=== PATIENT | male | born 1940 | race Caucasian/White ===

== ENCOUNTER 2017-01-27 08:12 | Inpatient (IN) | payer MEDICARE, BC ==
[~2017-01-27] VITALS: Ht 172.7 cm; Wt 126.4 kg
[~2017-01-27 08:12] MED LIST: ARIP15TA2 PO; ASPI-650 PO; ATOR80TA75 PO; BACITRACIN 50,000 UNIT ONE; BUPIVACAINE/PF-EPI 0.5% 1:200K ONE; CHOL10003 PO; DOCU100C PO; DULO30CA2 PO; FENO160T PO; FLUO40CA2 PO; INSU100V5 SQ-INSULIN; LISI-167 PO; OXYC1TAB7 PO; THROMBIN 5,000 UNIT VIAL TP ONE
[2017-01-27] MEDS ORDERED: LACTATED RINGERS 1,000 ML IV SCH ×2 (09:05→09:57)
[2017-01-27] MEDS ORDERED: FENTANYL PF 100 MCG/2ML ONE ×3 (09:47→15:17)
[2017-01-27 09:58] VITALS: BP 135/67
[2017-01-27] MEDS: FENTANYL PF 100 MCG/2ML IVPush PRN ×2 (10:01→10:41)
[2017-01-27] MEDS ORDERED: FENTANYL PF 250 MCG/5ML ONE (10:21)
[2017-01-27] MEDS ORDERED: INSU500I SQ (10:27)
[2017-01-27] MEDS ORDERED: OXYC-223 PO (10:27)
[2017-01-27] MEDS ORDERED: NEOSTIGMINE 1 MG/ML, 10ML ONE (11:48)
[2017-01-27] MEDS ORDERED: GLYCOPYRROLATE 0.2MG/1ML ONE (11:48)
[2017-01-27] MEDS ORDERED: PROPOFOL 10 MG/ML, 20ML ONE (11:48)
[2017-01-27] MEDS ORDERED: ROCURONIUM 10 MG/ML ONE (11:48)
[2017-01-27] MEDS ORDERED: DEXAMETHASONE 4 MG/ML, 1ML ONE (11:48)
[2017-01-27] MEDS ORDERED: CEFAZOLIN 1,000 MG ONE (11:48)
[2017-01-27] MEDS ORDERED: ACETAMINOPHEN 325 MG TABLET PO PRN (12:00)
[2017-01-27] MEDS ORDERED: hydrALAzine 20 MG/ML, 1ML IV PRN (12:00)
[2017-01-27] MEDS ORDERED: PROMETHAZINE 25 MG/ML, 1ML IV PRN (12:00)
[2017-01-27] MEDS ORDERED: OXYcodone 5 MG/5 ML ORAL.SOL UDC PO PRN (12:00)
[2017-01-27] MEDS ORDERED: MEPERIDINE/PF 25MG/0.5ML IVPush PRN (12:00)
[2017-01-27] MEDS ORDERED: LABETALOL 5MG/ML, 20ML IV PRN (12:00)
[2017-01-27] MEDS ORDERED: ONDANSETRON 2MG/ML, 2ML IVPush PRN (12:00)
[2017-01-27] MEDS ORDERED: HYDROmorphone 2 MG/ML, 1ML ONE (15:17)
[2017-01-27] MEDS ORDERED: OXYcodone 5 MG/5 ML ORAL.SOL UDC ONE (15:18)
[2017-01-27] MEDS: FENTANYL PF 100 MCG/2ML IV PRN ×2 (15:25→15:31)
[2017-01-27] MEDS: HYDROmorphone 1 MG/ML, 1ML IV PRN ×2 (15:39→16:37)
[2017-01-27] MEDS ORDERED: LABETALOL 5MG/ML, 20ML ONE (15:41)
[2017-01-27 16:53] LABS: IS PT STATUS REG ER OR PRE ER? NO
[2017-01-27 17:50] VITALS: BP 136/78
[2017-01-27] MEDS ORDERED: PROMETHAZINE 25 MG/ML, 1ML IM PRN (18:30)
[2017-01-27] MEDS ORDERED: ONDANSETRON 2MG/ML, 2ML IV PRN (18:30)
[2017-01-27] MEDS ORDERED: HYDROmorphone 2MG TABLET PO PRN (18:30)
[2017-01-27] MEDS ORDERED: DIPHENHYDRAMINE 50 MG/ML, 1ML IVPush PRN (18:30)
[2017-01-27] MEDS ORDERED: DIPHENHYDRAMINE 50 MG/ML, 1ML IM PRN (18:30)
[2017-01-27] MEDS ORDERED: BISACODYL 10 MG SUPP PR PRN (18:30)
[2017-01-27] MEDS ORDERED: METHOCARBAMOL 750 MG TABLET PO PRN (18:30)
[2017-01-27] MEDS ORDERED: MAGNESIUM HYDROXIDE 8%, 30ML UDC PO PRN (18:30)
[2017-01-27] MEDS ORDERED: HYDROmorphone 2 MG/ML, 1ML IM PRN (18:30)
[2017-01-27] MEDS ORDERED: DIPHENHYDRAMINE 50 MG CAPSULE PO PRN (18:30)
[2017-01-27 18:53] VITALS: BP 133/76
[2017-01-27 20:00] VITALS: BP 136/67
[2017-01-27] MEDS: NS + 20MEQ KCL 1,000 ML IV SCH (21:39)
[2017-01-27] MEDS: DULOXETINE 30 MG CAPSULE.DR PO SCH (21:40)
[2017-01-27] MEDS: ATORVASTATIN 80 MG TABLET PO SCH (21:40)
[2017-01-27] MEDS: DOCUSATE 100 MG CAPSULE PO SCH (21:40)
[2017-01-27] MEDS: CHOLECALCIFEROL 1,000 UNIT TABLET PO SCH (21:40)
[2017-01-27] MEDS: INSULIN REGULAR 100 UNITS/ML, 3ML VIAL SQ-INSULIN SCH (21:41)
[2017-01-27] MEDS: CEFAZOLIN PMX 1GM/50ML 50 ML IVPB SCH (22:53)
[2017-01-27] MEDS: ZOLPIDEM 5MG TABLET PO PRN (22:59)
[2017-01-27 23:55] VITALS: BP 137/78
[2017-01-28] MEDS: OXYcodone/APAP 5/325MG TABLET PO PRN ×2 (00:13→22:53)
[2017-01-28 03:30] VITALS: BP 132/73
[2017-01-28] MEDS: CEFAZOLIN PMX 1GM/50ML 50 ML IVPB SCH (06:35)
[2017-01-28 06:42] LABS: IS PT STATUS REG ER OR PRE ER? NO
[2017-01-28] MEDS: NS + 20MEQ KCL 1,000 ML IV SCH ×2 (07:00→19:30)
[2017-01-28 07:34] VITALS: BP 120/66
[2017-01-28] MEDS: INSULIN REGULAR 100 UNITS/ML, 3ML VIAL SQ-INSULIN SCH ×4 (08:28→20:58)
[2017-01-28] MEDS: ARIPIPRAZOLE 15 MG TABLET PO SCH (09:00)
[2017-01-28] MEDS: FENOFIBRATE 160MG HOMEMEDPO SCH (09:00)
[2017-01-28] MEDS: DULOXETINE 30 MG CAPSULE.DR PO SCH ×2 (10:23→20:40)
[2017-01-28] MEDS: DOCUSATE 100 MG CAPSULE PO SCH ×2 (10:23→20:40)
[2017-01-28] MEDS: SENNA/DOCUSATE TABLET PO SCH (10:23)
[2017-01-28] MEDS: LISINOPRIL 10 MG TABLET PO SCH (10:24)
[2017-01-28] MEDS: FLUOXETINE 20 MG CAPSULE PO SCH (10:24)
[2017-01-28] MEDS: CHOLECALCIFEROL 1,000 UNIT TABLET PO SCH ×2 (10:24→20:40)
[2017-01-28] MEDS: ASPIRIN 325 MG TABLET PO SCH (12:12)
[2017-01-28 13:48] VITALS: BP 118/69
[2017-01-28 19:15] VITALS: BP 116/69
[2017-01-28] MEDS: ZOLPIDEM 5MG TABLET PO PRN (20:39)
[2017-01-28] MEDS: ATORVASTATIN 80 MG TABLET PO SCH (20:40)
[2017-01-29 02:30] VITALS: BP 125/84
[2017-01-29] MEDS: OXYcodone/APAP 5/325MG TABLET PO PRN ×2 (03:20→08:13)
[2017-01-29 03:29] VITALS: BP 120/55
[2017-01-29] MEDS: ASPIRIN 325 MG TABLET PO SCH (06:14)
[2017-01-29 07:18] VITALS: BP 135/82
[2017-01-29] MEDS: NS + 20MEQ KCL 1,000 ML IV SCH (08:00)
[2017-01-29] MEDS: INSULIN REGULAR 100 UNITS/ML, 3ML VIAL SQ-INSULIN SCH (08:12)
[2017-01-29] MEDS: CHOLECALCIFEROL 1,000 UNIT TABLET PO SCH (08:13)
[2017-01-29] MEDS: FLUOXETINE 20 MG CAPSULE PO SCH (08:13)
[2017-01-29] MEDS: FENOFIBRATE 160MG HOMEMEDPO SCH (08:13)
[2017-01-29] MEDS: DOCUSATE 100 MG CAPSULE PO SCH (08:13)
[2017-01-29] MEDS: SENNA/DOCUSATE TABLET PO SCH (08:13)
[2017-01-29] MEDS: LISINOPRIL 10 MG TABLET PO SCH (08:14)
[2017-01-29] MEDS: DULOXETINE 30 MG CAPSULE.DR PO SCH (08:14)
[2017-01-29] MEDS: ARIPIPRAZOLE 15 MG TABLET PO SCH (09:00)
[2017-01-29] MEDS ORDERED: METOPROLOL TARTRATE 25 MG TABLET PO SCH (11:00)
[2017-01-29] MEDS ORDERED: METO25TA35 PO (11:48)
== END 2017-01-29 13:15 | disposition home or self-care (01) | DRG 518 ==
LOC: OUT 08:12 → 5SO 17:39 → OUT 17:47 → DCLOUNGE 01-29 11:27
PROVIDERS: ADMIT Neurological Surgery; ATTEND Neurological Surgery
PROC: 0SB20ZZ Excision of Lumbar Vertebral Disc, Open Approach (ICD-10-PCS; 2017-01-27)
PROC: 01NB0ZZ Release Lumbar Nerve, Open Approach (ICD-10-PCS; principal; 2017-01-27 12:30)
DX: M47.26 Other spondylosis with radiculopathy, lumbar region (principal); I21.4 Non-ST elevation (NSTEMI) myocardial infarction; I47.1 Supraventricular tachycardia; I50.30 Unspecified diastolic (congestive) heart failure; G96.11 Dural tear; M51.26 Other intervertebral disc displacement, lumbar region; E78.5 Hyperlipidemia, unspecified; G83.9 Paralytic syndrome, unspecified; I25.10 Atherosclerotic heart disease of native coronary artery without angina pectoris; Z87.891 Personal history of nicotine dependence; Z95.1 Presence of aortocoronary bypass graft; Z91.041 Radiographic dye allergy status; M51.16 Intervertebral disc disorders with radiculopathy, lumbar region
CPT/HCPCS: 36415; 72110; 82962; 84484; 93005; 93306; J0690; J1100; J1170; J1815; J2704; J2710; J3010; J3480; J3490; C1781; J7120